=== PATIENT | female | born 1985 | race Two or more races ===

== ENCOUNTER → 2020-01-11 | Outpatient (CLI) | payer SELFPAY ==
--- NOTE | 2020-01-11 14:32 | RADIOLOGY REPORT (SQ) ---
EXAM DESCRIPTION: U/S [id number] TRNABD 1GES W/ODOP IMAGES COMPLETED DATE/TIME: 01/11/2020 2:24 pm REASON FOR STUDY: Z34.81 ENCOUNTER FOR SUPRVSN OF NORMAL , FIRST TRIMESTER Z34.81 ENCOUNTE R FOR SUPRVSN OF NORMAL , FIRST TRIM COMPARISON: None. TECHNIQUE: Transabdominal static and realtime grayscale images acquired of the pelvis. Additional se lected spectral and color Doppler images recorded. All images [facility] PAC[facility]. [facility]. CLINICAL DATES: Unknown. LIMITATIONS: None. FINDINGS: FETUS: Single Living intrauterine . ULTRASOUND EGA: 10 weeks 1 day. ULTRASOUND MIKE: 08/07/2020 EFW: Not applicable less than 20 weeks. CRL: 3.22 cm. FHR: 178 Beats per minute. SURVEY: Too early to assess. AMNIOTIC FLUID: Adequate amount. PLACENTA: Not yet developed due to early gestation. SUBCHORIONIC BLEED: Yes. SIZE OF BLEED: 2.2 x 1.2 x 1.6 cm. UTERUS: No masses. No anomalies. CERVICAL LENGTH: 2.5 cm. Closed. RIGHT ADNEXA: Normal ovary with normal vascular flow. No adnexal free fluid. No adnexal masses. LEFT ADNEXA: Normal ovary with normal vascular flow. No adnexal free fluid. No adnexal masses. FREE FLUID: None. OTHER: No other significant finding. IMPRESSION: LIVING INTRAUTERINE . EGA 10 WEEKS 1 DAY. Trimester of : First trimester - 0 to 13 weeks. TECHNICAL DOCUMENTATION: JOB ID: [id number] 2010 [employer]- All Rights Reserved Reading location - IP/workstation name: [email or web address]
== END ==
LOC: RAD 13:57
PROVIDERS: ATTEND Midwife
DX: Z34.81 Encounter for supervision of other normal pregnancy, first trimester (principal); Z3A.10 10 weeks gestation of pregnancy
CPT/HCPCS: 76801

== ENCOUNTER → 2020-03-31 | Outpatient (CLI) | payer SELFPAY ==
--- NOTE | 2020-03-31 16:28 | RADIOLOGY REPORT (SQ) ---
EXAM DESCRIPTION: U/S OB 14+ TRNABD 1GES W/O DOP IMAGES COMPLETED DATE/TIME: 03/31/2020 3:56 pm REASON FOR STUDY: ENCOUNTER FOR SUPERVISION OF OTHER NORMAL Z34.82 ENCOUNTER FOR SUPRVSN OF NORMAL , SECOND TRI COMPARISON: 01/11/2020 TECHNIQUE: Static and Dynamic grayscale imaging performed of gravid uterus using transabdominal appr oach. Additional selected color Doppler and spectral images recorded. All stored on PACS. LIMITATIONS: None. FINDINGS: CLINICAL DATES: MIKE 08/06/2020 EGA: 21 WEEKS 5 DAYS FETUSES SEEN:1 EGA: 20 weeks 3 days Calculated using BPD,FL,HC,AC documented on images. MIKE: 08/15/2020 LVP: 3.4 x 9.5 cm PLACENTA: Posterior PRESENTATION: Variable. ANATOMY: HEART RATE: 153 beats per minute. FOUR CHAMBER HEART: Visualized. THREE VESSEL CORD: Yes. CORD INSERTION: Visualized. KIDNEYS AND BLADDER: Visualized. Appear normal. STOMACH: Visualized. Appears normal. SPINE: Normal as visualized. BRAIN AND LATERAL VENTRICLES: Visualized. Appear normal. OTHER: No other significant finding. MATERNAL ADNEXA: Right ovary nonvisualized. CERVICAL LENGTH: 4.9 cm Closed. OTHER: No other significant finding. IMPRESSION: LIVING INTRAUTERINE . ESTIMATED GESTATIONAL AGE 20 weeks 3 days NO VISUALIZED ANOMALIES. Trimester of : Second trimester - 13 weeks 1 day to 27 weeks 6 days. TECHNICAL DOCUMENTATION: JOB ID: [id number] 2010 [employer]- All Rights Reserved Reading location - IP/workstation name: [email or web address]
== END ==
LOC: RAD 15:11
PROVIDERS: ATTEND Nurse Practitioner Family
DX: Z34.82 Encounter for supervision of other normal pregnancy, second trimester (principal); Z3A.20 20 weeks gestation of pregnancy
CPT/HCPCS: 76805

== ENCOUNTER → 2020-05-12 | Outpatient (CLI) | payer SELFPAY ==
[2020-05-12 13:56] LABS: PLATELET COUNT 209 10^3/uL (150-450)
[2020-05-12 14:10] LABS: ALBUMIN 3.9 g/dL (3.5-5.0); ALKALINE PHOSPHATASE 81 U/L (38-126); ASPARTATE AMINO TRANSFERASE 24 U/L (14-36); BILIRUBIN,DIRECT 0.3 mg/dL (0.0-0.4); BILIRUBIN,TOTAL 0.5 mg/dL (0.2-1.3); TOTAL PROTEIN 6.9 g/dL (6.3-8.2)
[2020-05-12 14:19] LABS: UR PRO/CREAT RATIO RESULT 0.2 mg/mg (0.0-0.2); URINE PROTEIN 19.6 mg/dL (<12)
== END ==
LOC: OD 12:36
PROVIDERS: ATTEND Nurse Practitioner Family
DX: Z34.83 Encounter for supervision of other normal pregnancy, third trimester (principal); R03.0 Elevated blood-pressure reading, without diagnosis of hypertension
CPT/HCPCS: 36415; 80076; 82565; 82570; 84156; 85049

== ENCOUNTER → 2020-06-23 | Outpatient (CLI) | payer SELFPAY ==
[2020-06-23 12:35] LABS: PLATELET COUNT 183 10^3/uL (150-450)
[2020-06-23 12:41] LABS: UR PRO/CREAT RATIO RESULT 2.2 mg/mg (0.0-0.2); URINE CREATININE 6.7 mg/dL (16-327); URINE PROTEIN 14.7 mg/dL (<12)
[2020-06-23 12:58] LABS: ALBUMIN 3.6 g/dL (3.5-5.0); ALKALINE PHOSPHATASE 116 U/L (38-126); ASPARTATE AMINO TRANSFERASE 21 U/L (14-36); BILIRUBIN,DIRECT 0.1 mg/dL (0.0-0.4); BILIRUBIN,TOTAL 0.4 mg/dL (0.2-1.3); TOTAL PROTEIN 6.2 g/dL (6.3-8.2)
== END ==
LOC: OD 11:27
PROVIDERS: ATTEND Nurse Practitioner Family
DX: Z34.83 Encounter for supervision of other normal pregnancy, third trimester (principal)
CPT/HCPCS: 36415; 80076; 82565; 82570; 84156; 85049

== ENCOUNTER 2020-06-30 09:52 | Outpatient (CLI) | payer SELFPAY ==
--- NOTE | 2020-06-30 11:25 | RADIOLOGY REPORT (SQ) ---
EXAM DESCRIPTION: U/S OB LIMITED IMAGES COMPLETED DATE/TIME: 06/30/2020 10:31 am REASON FOR STUDY: KELLY only ; [facility] pt COMPARISON: None. TECHNIQUE: Limited transvaginal grayscale ultrasound for evaluation of specific requested obstetrica l parameters. LIMITATIONS: None. FINDINGS: CERVICAL LENGTH: Not assessed KELLY: 8.4 cm. FHR: 168 beats per minute. PRESENTATION: Cephalic. PLACENTA: Posterior ANATOMY: Not assessed OTHER: Estimated gestational age 33 weeks 3 days. IMPRESSION: LIMITED OBSTETRICAL ULTRASOUND WITH MEASURED PARAMETERS DELINEATED ABOVE. Trimester of : Third trimester - 28 weeks to delivery. TECHNICAL DOCUMENTATION: JOB ID: [id number] 2010 [employer]- All Rights Reserved Reading location - IP/workstation name: [email or web address]
--- NOTE | 2020-06-30 11:34 | Non Stress Test Report ---
Non Stress Test Datetime Report Generated by CPN: 06/30/2020 11:33 DEMOGRAPHIC EGA NST: 34.6 INDICATION Indication for Study (NST) Other: IUP at 34.6 VITAL SIGNS Temperature - NST: 98.9 Pulse - NST: 113 RESP - NST: 18 NBPSYS NST: 119 NBPDIA NST: 72 URINE RESULTS Urine Protein, NST: Positive MONITORING Monitor Explained: Monitor Explained; Test Explained; Patient Verbalized Understanding Time on Monitor: 06/30/2020 10:36 Time off Monitor: 06/30/2020 10:57 NST Duration: 21 NST INTERVENTIONS NST Interventions: PO Hydration Physician Notified NST: J. Mabry, CNM BABY A: [id number] BABY A Movement : Present Contraction Frequency : 0 FHR Baseline : 150 Accelerations : 15X15 Decelerations : None Variability : Moderate 6-25bpm NST Review: Meets Criteria for Reactive NST NST Review and Verified By : Malia Vidal NST Results: Reactive NST REPORT Report Trigger: Send Report
== END 2020-06-30 11:03 | disposition home or self-care (01) ==
LOC: LC 09:52
PROVIDERS: ATTEND Obstetrics & Gynecology
DX: O13.3 Gestational [pregnancy-induced] hypertension without significant proteinuria, third trimester (principal); Z3A.34 34 weeks gestation of pregnancy
CPT/HCPCS: 59025; 76815

== ENCOUNTER 2020-07-04 09:22 | Outpatient (CLI) | payer SELFPAY ==
--- NOTE | 2020-07-04 10:06 | Non Stress Test Report ---
Non Stress Test Datetime Report Generated by CPN: 07/04/2020 10:06 DEMOGRAPHIC EGA NST: 35.3 INDICATION Indication for Study (NST) Other: AMA VITAL SIGNS Temperature - NST: 97.3 Pulse - NST: 122 RESP - NST: 18 NBPSYS NST: 127 NBPDIA NST: 81 MONITORING Monitor Explained: Monitor Explained; Test Explained; Patient Verbalized Understanding Time on Monitor: 07/04/2020 09:41 Time off Monitor: 07/04/2020 10:01 NST Duration: 20 NST INTERVENTIONS NST Interventions: PO Hydration; Reposition Patient Physician Notified NST: J. Mabry, CNM BABY A: [id number] BABY A Movement : Present Contraction Frequency : 0 FHR Baseline : 150 Accelerations : 15X15 Decelerations : None Variability : Moderate 6-25bpm NST Review: Meets Criteria for Reactive NST NST Review and Verified By : Ba Barboza RN NST Results: Reactive NST REPORT Report Trigger: Send Report
== END 2020-07-04 10:06 | disposition home or self-care (01) ==
LOC: LC 09:22
PROVIDERS: ATTEND Student in an Organized Health Care Education/Training Program
DX: Z34.83 Encounter for supervision of other normal pregnancy, third trimester (principal)
CPT/HCPCS: 59025

== ENCOUNTER 2020-07-07 11:14 | Outpatient (CLI) | payer SELFPAY ==
--- NOTE | 2020-07-07 11:55 | Non Stress Test Report ---
Non Stress Test Datetime Report Generated by CPN: 07/07/2020 11:55 DEMOGRAPHIC EGA NST: 35.6 INDICATION Indication for Study (NST) Other: Repeat NST/KELLY VITAL SIGNS Temperature - NST: 97.8 Pulse - NST: 87 RESP - NST: 18 NBPSYS NST: 111 NBPDIA NST: 68 MONITORING Monitor Explained: Monitor Explained; Test Explained Time on Monitor: 07/07/2020 11:24 Time off Monitor: 07/07/2020 11:44 NST Duration: 20 NST INTERVENTIONS NST Interventions: PO Hydration Physician Notified NST: N Fay BABY A: [id number] BABY A Movement : Present Contraction Frequency : 0 FHR Baseline : 145 Accelerations : 15X15 Decelerations : None Variability : Moderate 6-25bpm NST Review: Meets Criteria for Reactive NST NST Review and Verified By : SAutry NST Results: Reactive NST REPORT Report Trigger: Send Report
--- NOTE | 2020-07-07 12:18 | RADIOLOGY REPORT (SQ) ---
EXAM DESCRIPTION: U/S OB LIMITED IMAGES COMPLETED DATE/TIME: 07/07/2020 12:10 pm REASON FOR STUDY: AMA w/ Htn, scheduled KELLY check COMPARISON: None. TECHNIQUE: Limited transabdominal grayscale ultrasound for evaluation of specific requested obstetri zaid parameters. LIMITATIONS: None. FINDINGS: CERVICAL LENGTH: 3.9 cm Closed. KELLY: 6.2 cm. LVP--- 3.6 x 4.1 cm FHR: 158 beats per minute. PRESENTATION: Cephalic. PLACENTA: Not assessed ANATOMY: Not assessed OTHER: No other significant findings. IMPRESSION: 1. LIMITED OBSTETRICAL ULTRASOUND WITH MEASURED PARAMETERS DELINEATED ABOVE. Trimester of : Third trimester - 28 weeks to delivery. TECHNICAL DOCUMENTATION: JOB ID: [id number] 2010 [employer]- All Rights Reserved Reading location - IP/workstation name: [email or web address]
== END 2020-07-07 12:32 | disposition home or self-care (01) ==
LOC: LC 11:14
PROVIDERS: ATTEND Obstetrics & Gynecology
DX: O13.3 Gestational [pregnancy-induced] hypertension without significant proteinuria, third trimester (principal); Z3A.35 35 weeks gestation of pregnancy
CPT/HCPCS: 59025; 76815

== ENCOUNTER 2020-07-10 16:27 | Outpatient (CLI) | payer SELFPAY ==
--- NOTE | 2020-07-10 17:59 | Non Stress Test Report ---
Non Stress Test Datetime Report Generated by CPN: 07/10/2020 17:59 DEMOGRAPHIC Test Number: 3 EGA NST: 36.2 INDICATION Indication for Study (NST) Other: tachycardia VITAL SIGNS Temperature - NST: 97.9 Pulse - NST: 91 RESP - NST: 18 NBPSYS NST: 124 NBPDIA NST: 76 MONITORING Monitor Explained: Monitor Explained; Test Explained; Patient Verbalized Understanding Monitor Explained Other: [address] [place] Time on Monitor: 07/10/2020 16:48 Time off Monitor: 07/10/2020 17:16 NST Duration: 28 NST INTERVENTIONS NST Interventions: PO Hydration Physician Notified NST: Dr. Crum BABY A: [id number] BABY A Movement : Present Contraction Frequency : x1 FHR Baseline : 140 Accelerations : 15X15 Decelerations : None Variability : Moderate 6-25bpm NST Review: Meets Criteria for Reactive NST NST Review and Verified By : Js NST Results: Reactive NST REPORT Report Trigger: Send Report
== END 2020-07-10 17:29 | disposition home or self-care (01) ==
LOC: LC 16:27
PROVIDERS: ATTEND Obstetrics & Gynecology
DX: O36.8330 Maternal care for abnormalities of the fetal heart rate or rhythm, third trimester, not applicable or unspecified (principal); O09.523 Supervision of elderly multigravida, third trimester; Z3A.36 36 weeks gestation of pregnancy
CPT/HCPCS: 59025

== ENCOUNTER 2020-07-25 11:17 | Outpatient (CLI) | payer SELFPAY ==
--- NOTE | 2020-07-25 12:33 | Non Stress Test Report ---
Non Stress Test Datetime Report Generated by CPN: 07/25/2020 12:33 DEMOGRAPHIC EGA NST: 38.3 INDICATION Indication for Study (NST) Other: Weekly NST and [facility] VITAL SIGNS Temperature - NST: 98.6 Pulse - NST: 117 RESP - NST: 18 NBPSYS NST: 118 NBPDIA NST: 73 URINE RESULTS Urine Blood - NST: Positive MONITORING Monitor Explained: Monitor Explained; Test Explained; Patient Verbalized Understanding Time on Monitor: 07/25/2020 11:27 Time off Monitor: 07/25/2020 11:58 NST Duration: 31 NST INTERVENTIONS NST Interventions: None Physician Notified NST: K. Jim, CNM BABY A: [id number] BABY A Movement : Present Contraction Frequency : x1 FHR Baseline : 150 Accelerations : 15X15 Decelerations : None Variability : Moderate 6-25bpm NST Review: Meets Criteria for Reactive NST NST Review and Verified By : C. Erik RN NST Results: Reactive NST COMMENTS NST Comments: CNM on unit NST REPORT Report Trigger: Send Report
--- NOTE | 2020-07-25 12:35 | RADIOLOGY REPORT (SQ) ---
EXAM DESCRIPTION: U/S OB LIMITED IMAGES COMPLETED DATE/TIME: 07/25/2020 12:19 pm REASON FOR STUDY: KELLY COMPARISON: 07/07/2020 TECHNIQUE: Limited transabdominal grayscale ultrasound for evaluation of specific requested obstetri zaid parameters. LIMITATIONS: None. FINDINGS: CERVICAL LENGTH: 3.3 cm. Closed. KELLY: 11.3 cm. LVP---- 5.0 x 5.0 cm FHR: 163 beats per minute. PRESENTATION: Cephalic. PLACENTA: Posterior. ANATOMY: Not assessed OTHER: No other significant findings. IMPRESSION: 1. LIMITED OBSTETRICAL ULTRASOUND WITH MEASURED PARAMETERS DELINEATED ABOVE. Trimester of : Third trimester - 28 weeks to delivery. TECHNICAL DOCUMENTATION: JOB ID: [id number] 2010 [employer]- All Rights Reserved Reading location - IP/workstation name: [email or web address]
== END 2020-07-25 12:38 | disposition home or self-care (01) ==
LOC: LC 11:17
PROVIDERS: ATTEND Student in an Organized Health Care Education/Training Program
DX: O09.523 Supervision of elderly multigravida, third trimester (principal); O26.893 Other specified pregnancy related conditions, third trimester; R31.9 Hematuria, unspecified; Z3A.38 38 weeks gestation of pregnancy
CPT/HCPCS: 59025; 76815

== ENCOUNTER → 2020-07-30 | Outpatient (CLI) | payer SELFPAY ==
[2020-07-30 13:15] LABS: ALBUMIN 3.7 g/dL (3.5-5.0); ALKALINE PHOSPHATASE 150 U/L (38-126); ASPARTATE AMINO TRANSFERASE 24 U/L (14-36); BILIRUBIN,DIRECT 0.1 mg/dL (0.0-0.4); BILIRUBIN,TOTAL 0.5 mg/dL (0.2-1.3); TOTAL PROTEIN 6.6 g/dL (6.3-8.2)
== END ==
LOC: OD 11:33
PROVIDERS: ATTEND Midwife
DX: Z34.83 Encounter for supervision of other normal pregnancy, third trimester (principal)
CPT/HCPCS: 36415; 80076; 82565

== ENCOUNTER 2020-08-13 11:24 | Inpatient (IN) | payer OTHER ==
[2020-08-13] MEDS ORDERED: RINGERS SOLUTION,LACTATED 500 ML IV ONE (11:33)
[2020-08-13] MEDS: RINGERS SOLUTION,LACTATED 1,000 ML IV PRN ×2 (12:11→13:19)
[2020-08-13 12:19] LABS: AMORPHOUS SEDIMENT,URINE TRACE /HPF; APPEARANCE,URINE SLIGHTLY-CLOUDY; BILIRUBIN,URINE NEGATIVE (NEGATIVE); COLOR,URINE YELLOW; GLUCOSE, URINE >=500 mg/dL (NEGATIVE); KETONES,URINE NEGATIVE (NEGATIVE); LEUKOCYTE ESTERASE,URINE MODERATE (NEGATIVE); NITRITE,URINE NEGATIVE (NEGATIVE); PROTEIN,URINE NEGATIVE (NEGATIVE); URINE SPECIFIC GRAVITY 1.003; UROBILINOGEN,URINE NEGATIVE mg/dL (<2.0)
[2020-08-13 12:25] LABS: URINE AMPHETAMINES SCREEN NEGATIVE; URINE BARBITURATES SCREEN NEGATIVE; URINE BENZODIAZEPINES SCREEN NEGATIVE; URINE COCAINE SCREEN NEGATIVE; URINE MARIJUANA (THC) SCREEN NEGATIVE; URINE METHADONE SCREEN NEGATIVE; URINE PHENCYCLIDINE SCREEN NEGATIVE
[2020-08-13 12:49] LABS: ABSOLUTE LYMPHOCYTES (AUTO) 1.5 10^3/uL (0.5-4.7); ABSOLUTE MONOCYTES (AUTO) 0.8 10^3/uL (0.1-1.4); ABSOLUTE NEUT (AUTO) 12.9 10^3/uL (1.7-8.2); BASOPHILS % (AUTO) 0.2 % (0-2); EOSINOPHILS % (AUTO) 0.2 % (0-6); HEMATOCRIT 38.1 % (36.0-47.0); HEMOGLOBIN 12.8 g/dL (12.0-15.5); LYMPHOCYTES % (AUTO) 9.7 % (13-45); MEAN CORPUSCULAR HEMOGLOBIN 31.2 pg (27.0-33.4); MEAN CORPUSCULAR HGB CONC 33.5 g/dL (32.0-36.0); MEAN CORPUSCULAR VOLUME 93 fl (80-97); MONOCYTES % (AUTO) 5.5 % (3-13); PLATELET COUNT 165 10^3/uL (150-450); RED CELL DISTRIBUTION WIDTH 14.3 % (11.5-14.0); SEGMENTED NEUTROPHILS % (AUTO) 84.4 % (42-78); TOTAL CELLS COUNTED % (AUTO) 100 %; WHITE BLOOD COUNT 15.2 10^3/uL (4.0-10.5)
[2020-08-13 12:59] LABS: ALBUMIN 3.3 g/dL (3.5-5.0); ALKALINE PHOSPHATASE 158 U/L (38-126); ANION GAP 8 (5-19); ASPARTATE AMINO TRANSFERASE 23 U/L (14-36); BILIRUBIN,DIRECT 0.2 mg/dL (0.0-0.4); BILIRUBIN,TOTAL 0.5 mg/dL (0.2-1.3); BLOOD UREA NITROGEN 4 mg/dL (7-20); CALCIUM 8.9 mg/dL (8.4-10.2); CARBON DIOXIDE 21 mmol/L (22-30); CHLORIDE 108 mmol/L (98-107); GLUCOSE 91 mg/dL (75-110); POTASSIUM 4.1 mmol/L (3.6-5.0); TOTAL PROTEIN 6.2 g/dL (6.3-8.2); URIC ACID 3.4 mg/dL (2.5-7.0)
[2020-08-13 13:58] LABS: UR PRO/CREAT RATIO RESULT 1.1 mg/mg (0.0-0.2); URINE CREATININE 17.3 mg/dL (16-327); URINE PROTEIN 19.8 mg/dL (<12)
[2020-08-13] MEDS ORDERED: LIDOCAINE 1% INJ-PF (10 MG/ML) 30 ML SDV ONE (14:26)
[2020-08-13] MEDS ORDERED: OXYTOCIN/0.9 % SODIUM CHLORIDE 30 UNIT/500 ML RTUINJ ONE (14:26)
[2020-08-13] MEDS ORDERED: MISOPROSTOL 0.2 MG TABLET ONE (14:26)
[2020-08-13] MEDS ORDERED: OXYTOCIN 10 UNIT/ML VIAL ONE (14:26)
--- NOTE | 2020-08-13 15:19 | Admission Physical ---
Datetime Report Generated by CPN: 08/13/2020 15:19 CURRENT ADMISSION Chief Complaint: Uterine Contractions; Suspected Ruptured Membranes Chief Complaint Other: sent from [facility] 6c per Omero Fay [facility] Indication for Induction: Not Applicable; Post Dates Admit Impression : Active Labor Admit Plan: Initiate Labor Protocol Admit Plan- Other: 41.1 GBS neg had 1 x consult at [facility] today, she has been getting PNC at [facility] +afp for DS, declined MFM ALLERGIES Medication Allergies: No Medication Allergies: No Known Allergies (08/13/2020) Latex: No Latex Allergies OBSTETRICAL HISTORY EDC: 08/05/2020 00:00 : 3 Para: 2 Term: 0 : 0 SAB: 0 IAB: 0 Ectopic: 0 Cesareans: 0 VBACs: 0 Multiple Births: 0 SEE RECORDS Alcohol: No Marijuana : No Cocaine: No Other Illicit Drugs: No Cigarettes: Never Smoker. [id number] PHYSICAL EXAM General: Normal HEENT: Deferred Neurologic: Normal Thyroid: Deferred Heart: Normal Lungs: Normal Breast: Deferred Back: Deferred Abdomen: Normal Genitourinary Exam: Normal Extremities: Normal DTRs: Deferred Pelvic Type: Adequate Vital Signs: Reviewed FETUS A EGA: 41.1 Monitoring: External US Variability: Moderate 6-25bpm Accelerations: 15X15 Decelerations: None Presentation: Vertex Admit Comment: admitted to unit for labor anticipate declines epidural PLANS FOR LABOR AND DELIVERY Labor and Delivery: None Pain Management: Natural Feeding Preference: Both Benefit of Breast Feed Discussed: Yes Circumcision: No INFORMED CONSENT Assignment: Seth Vinson MD Signature: with User ID: Drew : with User ID: Drew
[2020-08-13] MEDS ORDERED: IBUPROFEN 800 MG TABLET ONE (17:33)
[2020-08-13] MEDS ORDERED: BENZOCAINE/MENTHOL AEROSOL SPRAY 56 ML ONE (17:34)
[2020-08-13] MEDS ORDERED: PSEUDOEPHEDRINE HCL 30 MG TABLET PO PRN (19:07)
[2020-08-13] MEDS ORDERED: ACETAMINOPHEN WITH CODEINE #3 TABLET PO PRN ×2 (19:07)
[2020-08-13] MEDS ORDERED: ACETAMINOPHEN 325 MG TABLET PO PRN (19:07)
[2020-08-13] MEDS ORDERED: FAMOTIDINE 20 MG TABLET PO PRN (19:07)
[2020-08-13] MEDS ORDERED: DIPHENHYDRAMINE HCL 25 MG CAPSULE PO PRN (19:07)
[2020-08-13] MEDS ORDERED: ZOLPIDEM TARTRATE 5 MG TABLET PO PRN (19:07)
[2020-08-13] MEDS ORDERED: OXYTOCIN/0.9 % SODIUM CHLORIDE 30 UNIT/500 ML RTUINJ IV PRN (19:07)
[2020-08-13] MEDS ORDERED: MEASLES,MUMPS&RUBELLA VACC/PF 0.5 ML VIAL SUBCUT PRN (19:07)
[2020-08-13] MEDS ORDERED: DIBUCAINE 1% OINTMENT 28 GM TP PRN (19:07)
[2020-08-13] MEDS ORDERED: MAGNESIUM HYDROXIDE SUSP 30 ML UDCUP PO PRN (19:07)
[2020-08-13] MEDS ORDERED: MAG HYDROX/AL HYDROX/SIMETH SUSP 30 ML UDCUP PO PRN (19:07)
[2020-08-13] MEDS ORDERED: GLYCERIN/WITCH HAZEL LEAF 1 EACH MED..WIPE TP PRN (19:07)
[2020-08-13] MEDS ORDERED: BENZOCAINE/MENTHOL AEROSOL SPRAY 56 ML TOP PRN (19:07)
[2020-08-13] MEDS ORDERED: VARICELLA VACC/PF (1350 UNIT/0.5 ML) 0.5 ML VIAL SUBCUT PRN (19:07)
[2020-08-13] MEDS ORDERED: ACETAMINOPHEN 650 MG SUPP.RECT PR PRN (19:07)
[2020-08-13] MEDS ORDERED: DIPH/PERTUSS(ACELL)/TETANUS VAC/PF 0.5 ML SYR (>=10YO) IM PRN (19:07)
[2020-08-13] MEDS: IBUPROFEN 800 MG TABLET PO SCH (21:27)
--- NOTE | 2020-08-13 22:33 | Birth Certificate Data ---
Cert Data Datetime Report Generated by CPN: 08/13/2020 22:33 CERTIFICATE DATA Delivery Provider: Miracle Jim CNM (06/30/2020 09:56:Holly Vidal RN) 47a. Care: Yes (06/30/2020 09:56:Sruthi Castellanos RN) 48a. Number of Prev Live Births: 2 (06/30/2020 09:56:Sruthi Castellanos RN) 48d. Date of Last Live : 04/30/2010 00:00 (06/30/2020 09:56:Sruthi Castellanos RN) 48e. Losses: 0 (06/30/2020 09:56:Sruthi Castellanos RN) RISK FACTORS IN THIS 49c. Previous Births: 0 (06/30/2020 09:56:November IDALIA Castellanos) 49f. Previous Cesareans: 0 (06/30/2020 09:56:November IDALIA Castellanos) Mother's Height 50b. Height Inches: 64 (08/13/2020 12:03:[facility] system process) Mother's Weight 51a. Pre- Weight (lbs): 166 (06/30/2020 09:56:November IDALIA Castellanos) 51b. Weight at Delivery (lbs): 180 (08/13/2020 18:05:[facility] system process) 52. Dt Last Normal Menses Began: 10/30/2019 00:00 (06/30/2020 09:56:November IDALIA Castellanos) Infections Present/Treated Results this Hospital Visit : Negative (06/30/2020 09:56:Sruthi Castellanos RN) Results this Hospital Visit: Negative (06/30/2020 09:56:Sruthi Castellanos RN) Results this Hospital Visit: Negative (06/30/2020 09:56:Sruthi Castellanos RN) 53e. Hepatitis C: Negative (06/30/2020 09:56:Sruthi Castellanos RN) 53h. Mother Tested for HBsAG: Yes (06/30/2020 09:56:Sruthi Castellanos RN) 53i. Date Tested: 01/17/2020 00:00 (06/30/2020 09:56:Sruthi Castellanos RN) 53j. Test Result: Negative (06/30/2020 09:56:Sruthi Castellanos RN) Cigarette Smoking Cigarette Smoking: Never Smoker. [id number] (06/30/2020 09:56:Holly Vidal RN) Onset of Labor 56a. PROM >12 Hrs: 12.78 (08/13/2020 12:48:QS system process) 56b. Precipitous Labor <3 Hrs: 12 (06/30/2020 09:56:QS system process) 56c. Prolonged Labor > 20 Hrs: 12 (06/30/2020 09:56:QS system process) 57a. Induction of Labor: N/A (Annotations: Data stored by N on behalf of user) (06/30/2020 09:56:Holly Vidal RN) 57c. Non-Vertex Presentation A: Vertex (06/30/2020 09:56:Holly Vidal RN) 57d. Steroids - Lung Mat: None (06/30/2020 09:56:Holly Vidal RN) 57d. Steroids - Lung Mat: Not Applicable (06/30/2020 09:56:Holly Vidal RN) 57f. Mat [place] or Temp >100.4: 99.9 (06/30/2020 09:56:Holly Vidal RN) 57g. Moderate/Heavy Meconium: Clear (08/13/2020 12:48:Holly Vidal RN) 57h. Intolerance of Labor: N/A (06/30/2020 09:56:Holly Vidal RN) 57i. Epidural/Spinal Anesthesia: None (06/30/2020 09:56:Holly Vidal RN) Method of Delivery 58a. Forceps - Unsuccessful A: N/A (06/30/2020 09:56:Holly Vidal RN) 58b. Vacuum - Unsuccessful A: N/A (06/30/2020 09:56:Holly Vidal RN) 58c. Presentation at 58c. Presentation at - A : Vertex (06/30/2020 09:56:Holly Vidal RN) 58c. Presentation at - A : N/A (06/30/2020 09:56:Holly Vidal RN) 58c. Presentation at - A : Cephalic (08/13/2020 12:57:Holly Vidal RN) Final Route and Method of Del 58d. Baby A Route/Delivery: Vaginal (08/13/2020 14:47:Holly Vidal RN) 58e. Trial of Labor Attempted: No (06/30/2020 09:56:Holly Vidal RN) 58e. Trial of Labor Attempted A: N/A (06/30/2020 09:56:Holly Vidal RN) Maternal Morbidity 59b. 3rd or 4th Degree Lacs: Vaginal (06/30/2020 09:56:Miracle Jim CNM) Birthweight Baby A: 3380 (06/30/2020 09:56:Holly Vidal RN) 60a. Pounds : 7 (06/30/2020 09:56:QS system process) 60b. Ounces: 7 (06/30/2020 09:56:QS system process) 61. GA at Delivery Baby A: 41.1 (06/30/2020 09:56:Holly Vidal RN) : Late Term- 41- 41.6 Weeks (06/30/2020 09:56:QS system process) 62a. 5 Minute Baby A: 9 (06/30/2020 09:56:QS system process)
--- NOTE | 2020-08-13 22:33 | Delivery Summary ---
Del Sum A-C Datetime Report Generated by CPN: 08/13/2020 22:32 DELIVERY PERSONNEL DELIVERY PERSONNEL: [id number] Delivery Doctor:: Miracle Jim CNM Nurse Facial Operator Certified:: Miracle Jim CNM Labor and Delivery Nurse:: Holly Vidal RNmanager wound Nurse:: OC [place] Se[employer] Harvester:: Dr. Rivka Guardado Nursery Nurse:: Jackie Roche RN Nursery Nurse:: Kay Ashton RN Hair Sample Matcher/COOK SHORT ORDER: Jane Owens, ST MATERNAL INFORMATION Delivery Anesthesia: None Medications After Delivery: Pitocin 30 Units in 500ml NS/D5W; Other-Please Comment Meds After Delivery Comment: Lidocaine Delivery QBL Comment: 400 Maternal Complications: Maternal Fever Provider Comments: SVDVM, ZHENG. Ant shoulder delivered, tight, then post shoulder followed by body and cord. Short cord noted. vigorous, to mothers abd. Cord cut before 2 min d/t maternal bleeding noted. Laceration just inside post vaginal wall near perineum bleeding, small 1st degree. Used 3.0 suture to acheive hemostasis. Placenta spont via flores, inact. Fundus firmed, pitocin bolus started. Mother and stable. LABOR SUMMARY EDC: 08/05/2020 00:00 No. Babies in Womb: 1 Attempted: No Labor Anesthesia: None LABOR INFORMATION Reason for Induction: Not Applicable Onset of Labor: 08/13/2020 02:00 Complete Dilatation: 08/13/2020 14:23 Oxytocin: N/A (Annotations: Data stored by N on behalf of user) Group B Beta Strep: negative Antibiotics # of Doses: 0 Steroids Given: None Reason Steroids Not Administered: Not Applicable MEMBRANES Membranes Rupture Method: Spontaneous Rupture of Membranes: 08/13/2020 02:00 Length of Rupture (hr): 12.78 Amniotic Fluid Color: Clear Amniotic Fluid Amount: Small Amniotic Fluid Odor: None STAGES OF LABOR Stage 1 hr: 12 Stage 1 min: 23 Stage 2 hr: 0 Stage 2 min: 24 Stage 3 hr: 0 Stage 3 min: 6 Total Time in Labor hr: 12 Total Time in Labor min: 53 VAGINAL DELIVERY Episiotomy: None Laceration #1: Vaginal Laceration Extension #1: First Degree Laceration Repair: Yes Laceration Repair Note: 3.0 chromic suture used for hemostasis Sponge Count Correct: N/A CSECTION DELIVERY Primary Indication: N/A BABY A INFORMATION Infant Delivery Date/Time: 08/13/2020 14:47 Method of Delivery: Vaginal Born in Route : No : N/A Forceps: N/A Vacuum Extraction: N/A Shoulder Dystocia : No PRESENTATION/POSITION BABY A Presentation: Cephalic Cephalic Presentation: Vertex Vertex Position: Right Occipital Anterior Breech Presentation: N/A PLACENTA INFORMATION BABY A Placenta Delivery Time : 08/13/2020 14:53 Placenta Method of Delivery: Spontaneous Placenta Status: Delivered SCORES BABY A Heart Rate 1 min: >100 bpm Resp Effort 1 min: Good Cry Reflex Irritability 1 min: Cough or Sneeze or Pulls Away Muscle Tone 1 min: Active Motion Color 1 min: Blue/Pale Resuscitation Effort 1 min: Tactile Stimulation SCORE 1 MIN: 8 Heart Rate 5 min: >100 bpm Resp Effort 5 min: Good Cry Reflex Irritability 5 min: Cough or Sneeze or Pulls Away Muscle Tone 5 min: Active Motion Color 5 min: Body [place], Extremities Blue Resuscitation Effort 5 min: N/A SCORE 5 MIN: 9 INFORMATION BABY A Gestational Age at Delivery: 41.1 Gestational Status: Late Term- 41- 41.6 Weeks Infant Outcome : Liveborn Condition : Stable Infant Sex: Male IDENTIFICATION BABY A Verification Date/Time: 08/13/2020 16:40 ID Band Number: [id number] Mother's Name Verified: Yes RN Verifying Infant: M Young Additional Verifying Personnel: K Poli WEIGHT/LENGTH BABY A Birthweight (gm): 3380 Infant Weight (lb): 7 Infant Weight (oz): 7 Length (in): 20.00 Length (cm): 50.80 CORD INFORMATION BABY A No. Cord Vessels: 3 Infant Suction: None ASSESSMENT BABY A Skin to Skin: Yes SIGNATURES Assignment: Seth Vinson MD Signature: with User ID: [email or web address] : with User ID: Drew : I was personally available for consultation and serving as supervising physician for the MLP.
[2020-08-14] MEDS: IBUPROFEN 800 MG TABLET PO SCH ×3 (05:32→21:30)
[2020-08-14 07:20] LABS: HEMATOCRIT 35.4 % (36.0-47.0); HEMOGLOBIN 12.1 g/dL (12.0-15.5); MEAN CORPUSCULAR HEMOGLOBIN 31.6 pg (27.0-33.4); MEAN CORPUSCULAR HGB CONC 34.1 g/dL (32.0-36.0); MEAN CORPUSCULAR VOLUME 93 fl (80-97); PLATELET COUNT 167 10^3/uL (150-450); RED BLOOD COUNT 3.82 10^6/uL (3.72-5.28); RED CELL DISTRIBUTION WIDTH 14.5 % (11.5-14.0); WHITE BLOOD COUNT 15.8 10^3/uL (4.0-10.5)
[2020-08-14] MEDS: FERROUS SULFATE 325 MG TABLET PO SCH ×2 (09:43→18:44)
[2020-08-14] MEDS: DOCUSATE SODIUM 100 MG CAPSULE PO SCH ×2 (09:43→18:44)
[2020-08-14] MEDS: PRENATAL VITAMIN W DHA CAPSULE PO SCH (09:43)
[2020-08-14] MEDS: SENNOSIDES/DOCUSATE 8.6-50 MG 1 EACH TABLET PO SCH (09:43)
--- NOTE | 2020-08-14 11:02 | PDOC PROGRESS REPORT ---
Subjective-OB Progress Note for:: 08/14/20 Subjective: Doing well, no c/o, hsb at BS, breast and bottle feeding Physical Exam (OB) Vital Signs: Temp Pulse Resp BP Pulse Ox 97.7 F 80 16 121/78 100 08/14/20 07:52 08/14/20 07:52 08/14/20 07:52 08/14/20 07:52 08/14/20 07:52 Intake & Output 08/13/20 08/14/20 08/15/20 06:59 06:59 06:59 Intake Total 843 450 Balance 843 450 Weight 82.2 kg - PIH/Pre-Eclampsia DTR's: 1 + Clonus: Negative Headache: Absent Epigastric Pain: No Visual Changes: No - Maternal Morbidity 59. Maternal Morbidity (serious complications experinced by the mother associated with labor and delivery: None of the above - Lochia Lochia Amount: Scant < 10 ml Lochia Color: Rubra/Red - Abdomen Description: Soft Hernia Present: No Fundal Description: Firm, Midline Fundal Height: u/u - u/2 Objective-Diagnostic Laboratory: 08/14/20 06:35 08/13/20 12:19 08/13/20 08/13/20 08/13/20 11:45 12: 12:19 WBC 15.2 H RBC 4.10 Hgb 12.8 Hct 38.1 MCV 93 MCH 31.2 MCHC 33.5 RDW 14.3 H Plt Count 165 Seg Neutrophils % 84.4 H Sodium Potassium Chloride Carbon Dioxide Anion Gap BUN Creatinine Est GFR ( Amer) Glucose Uric Acid Calcium Total Bilirubin AST Alkaline Phosphatase Total Protein Albumin Urine Color YELLOW Urine Appearance SLIGHTLY-CLOUDY Urine pH 7.0 Ur Specific [place] 1.003 Urine Protein NEGATIVE Urine Glucose (UA) >=500 H Urine Ketones NEGATIVE Urine Blood LARGE H Urine Nitrite NEGATIVE Ur Leukocyte Esterase MODERATE H Urine WBC (Auto) 37 Urine RBC (Auto) 13 Blood Type O POSITIVE Antibody Screen NEGATIVE 08/13/20 08/14/20 12:19 06:35 WBC 15.8 H RBC 3.82 Hgb 12.1 Hct 35.4 L MCV 93 MCH 31.6 MCHC 34.1 RDW 14.5 H Plt Count 167 Seg Neutrophils % Sodium 136.8 L Potassium 4.1 Chloride 108 H Carbon Dioxide 21 L Anion Gap 8 BUN 4 L Creatinine 0.34 L Est GFR ( Amer) > 60 Glucose 91 Uric Acid 3.4 Calcium 8.9 Total Bilirubin 0.5 AST 23 Alkaline Phosphatase 158 H Total Protein 6.2 L Albumin 3.3 L Urine Color Urine Appearance Urine pH Ur Specific [place] Urine Protein Urine Glucose (UA) Urine Ketones Urine Blood Urine Nitrite Ur Leukocyte Esterase Urine WBC (Auto) Urine RBC (Auto) Blood Type Antibody Screen Assessment and Plan(PN) - Assessment and Plan (1) AMA (advanced maternal age) multigravida 35+ Qualifiers: Trimester: first trimester Qualified Code(s): O09.521 - Supervision of elderly multigravida, first trimester Is this a current diagnosis for this admission?: Yes (2) Obstetrical laceration, first degree Is this a current diagnosis for this admission?: Yes (3) Vaginal delivery Is this a current diagnosis for this admission?: Yes (4) SROM (spontaneous rupture of membranes) Is this a current diagnosis for this admission?: Yes - Time Spent with Patient Time with patient: Less than 15 minutes Medications reviewed and adjusted accordingly: Yes - Disposition Anticipated Discharge Disposition: Home, Self Care Anticipated Discharge Timeframe: within 24 hours
[2020-08-15] MEDS: IBUPROFEN 800 MG TABLET PO SCH ×2 (06:49→14:01)
[2020-08-15 07:51] VITALS: BP 95/63
--- NOTE | 2020-08-15 09:19 | PDOC PROGRESS REPORT ---
Subjective-OB Progress Note for:: 08/15/20 Subjective: Pt ready to go home, hsb and baby at BS, no c/o, nurse will discuss PP home care and instructions with them, ,scant bleeding Physical Exam (OB) Vital Signs: Temp Pulse Resp BP Pulse Ox 98.2 F 79 17 95/63 L 97 08/15/20 07:48 08/15/20 07:48 08/15/20 07:48 08/15/20 07:48 08/15/20 07:48 Intake & Output 08/14/20 08/15/20 08/16/20 06:59 06:59 06:59 Intake Total 843 800 Balance 843 800 Weight 82.2 kg - PIH/Pre-Eclampsia DTR's: 2 + Clonus: Negative Headache: Absent Epigastric Pain: No Visual Changes: No - Maternal Morbidity 59. Maternal Morbidity (serious complications experinced by the mother associated with labor and delivery: None of the above - Lochia Lochia Amount: Scant < 10 ml Lochia Color: Rubra/Red - Abdomen Description: Soft, Round Hernia Present: No Fundal Description: Firm, Midline Fundal Height: u/u - u/2 Objective-Diagnostic Laboratory: 08/14/20 06:35 08/13/20 12:19 Assessment and Plan(PN) - Assessment and Plan (1) AMA (advanced maternal age) multigravida 35+ Qualifiers: Trimester: first trimester Qualified Code(s): O09.521 - Supervision of elderly multigravida, first trimester Is this a current diagnosis for this admission?: Yes (2) Obstetrical laceration, first degree Is this a current diagnosis for this admission?: Yes (3) Vaginal delivery Is this a current diagnosis for this admission?: Yes (4) SROM (spontaneous rupture of membranes) Is this a current diagnosis for this admission?: Yes - Time Spent with Patient Time with patient: Less than 15 minutes Medications reviewed and adjusted accordingly: Yes - Disposition Anticipated Discharge Disposition: Home, Self Care Anticipated Discharge Timeframe: within 24 hours
--- NOTE | 2020-08-15 09:24 | PDOC DISCHARGE SUMMARY ---
Impression - Admit/DC Date/PCP Admission Date/Primary Care Provider: 08/13/20 11:24 MATTHEW TAMAYO MD Discharge Date: 08/15/20 - Discharge Diagnosis (1) AMA (advanced maternal age) multigravida 35+ Is this a current diagnosis for this admission?: Yes (2) Obstetrical laceration, first degree Is this a current diagnosis for this admission?: Yes (3) Vaginal delivery Is this a current diagnosis for this admission?: Yes (4) SROM (spontaneous rupture of membranes) Is this a current diagnosis for this admission?: Yes - Additional Information Resuscitation Status: Full Code Discharge Diet: As Tolerated, Regular Discharge Activity: Activity As Tolerated Referrals: MATTHEW TAMAYO MD [Primary Care Provider] - Home Medications: Prenat 115/Iron Fum/Folic/Dss [ 19 Tablet] 1 each PO DAILY 06/30/20 HPI Gestational Age: 41.1 Reason(s) for Admission: Onset of Labor, Spontaneous , Advanced Maternal Age Procedures: NST, Ultrasound Intrapartum Procedure(s): Spontaneous Vaginal Delivery Complication(s): Laceration-Vaginal Laceration-Degree: 1st Hospital Course Hospital Course: routine 57. Maternal Morbidity (serious complications experinced by the mother associated with labor and delivery: None of the above Results Laboratory Results: WBC 15.8 10^3/uL (4.0-10.5) H 08/14/20 06:35 RBC 3.82 10^6/uL (3.72-5.28) 08/14/20 06:35 Hgb 12.1 g/dL (12.0-15.5) 08/14/20 06:35 Hct 35.4 % (36.0-47.0) L 08/14/20 06:35 MCV 93 fl (80-97) 08/14/20 06:35 MCH 31.6 pg (27.0-33.4) 08/14/20 06:35 MCHC 34.1 g/dL (32.0-36.0) 08/14/20 06:35 RDW 14.5 % (11.5-14.0) H 08/14/20 06:35 Plt Count 167 10^3/uL (150-450) 08/14/20 06:35 Lymph % (Auto) 9.7 % (13-45) L 08/13/20 12:19 [place] % (Auto) 5.5 % (3-13) 08/13/20 12:19 Eos % (Auto) 0.2 % (0-6) 08/13/20 12:19 Baso % (Auto) 0.2 % (0-2) 08/13/20 12:19 Absolute Neuts (auto) 12.9 10^3/uL (1.7-8.2) H 08/13/20 12:19 Absolute Lymphs (auto) 1.5 10^3/uL (0.5-4.7) 08/13/20 12:19 Absolute Monos (auto) 0.8 10^3/uL (0.1-1.4) 08/13/20 12:19 Absolute Eos (auto) 0.0 10^3/uL (0.0-0.6) 08/13/20 12:19 Absolute Basos (auto) 0.0 10^3/uL (0.0-0.2) 08/13/20 12:19 Seg Neutrophils % 84.4 % (42-78) H 08/13/20 12:19 Sodium 136.8 mmol/L (137-145) L 08/13/20 12:19 Potassium 4.1 mmol/L (3.6-5.0) 08/13/20 12:19 Chloride 108 mmol/L (98-107) H 08/13/20 12:19 Carbon Dioxide 21 mmol/L (22-30) L 08/13/20 12:19 Anion Gap 8 (5-19) 08/13/20 12:19 BUN 4 mg/dL (7-20) L 08/13/20 12:19 Creatinine 0.34 mg/dL (0.52-1.25) L 08/13/20 12:19 Est GFR ( Amer) > 60 (>60) 08/13/20 12:19 Est GFR (MDRD) Non-Af > 60 (>60) 08/13/20 12:19 Glucose 91 mg/dL (75-110) 08/13/20 12:19 Uric Acid 3.4 mg/dL (2.5-7.0) 08/13/20 12:19 Calcium 8.9 mg/dL (8.4-10.2) 08/13/20 12:19 Total Bilirubin 0.5 mg/dL (0.2-1.3) 08/13/20 12:19 Direct Bilirubin 0.2 mg/dL (0.0-0.4) 08/13/20 12:19 Neonat Total Bilirubin Not Reportable 08/13/20 12:19 Neonat Direct Bilirubin Not Reportable 08/13/20 12:19 Neonat Indirect Bili Not Reportable 08/13/20 12:19 AST 23 U/L (14-36) 08/13/20 12:19 ALT 16 U/L (<35) 08/13/20 12:19 Alkaline Phosphatase 158 U/L (38-126) H 08/13/20 12:19 Lactate Dehydrogenase 194 U/L (120-246) 08/13/20 12:19 Total Protein 6.2 g/dL (6.3-8.2) L 08/13/20 12:19 Albumin 3.3 g/dL (3.5-5.0) L 08/13/20 12:19 Urine Color YELLOW 08/13/20 11:45 Urine Appearance SLIGHTLY-CLOUDY 08/13/20 11:45 Urine pH 7.0 (5.0-9.0) 08/13/20 11:45 Ur Specific [place] 1.003 08/13/20 11:45 Urine Protein NEGATIVE mg/dL (NEGATIVE) 08/13/20 11:45 Urine Glucose (UA) >=500 mg/dL (NEGATIVE) H 08/13/20 11:45 Urine Ketones NEGATIVE mg/dL (NEGATIVE) 08/13/20 11:45 Urine Blood LARGE (NEGATIVE) H 08/13/20 11:45 Urine Nitrite NEGATIVE (NEGATIVE) 08/13/20 11:45 Urine Bilirubin NEGATIVE (NEGATIVE) 08/13/20 11:45 Urine Urobilinogen NEGATIVE mg/dL (<2.0) 08/13/20 11:45 Ur Leukocyte Esterase MODERATE (NEGATIVE) H 08/13/20 11:45 Urine WBC (Auto) 37 /HPF 08/13/20 11:45 Urine RBC (Auto) 13 /HPF 08/13/20 11:45 Urine Bacteria (Auto) TRACE /HPF 08/13/20 11:45 Squamous Epi Cells Auto 13 /HPF 08/13/20 11:45 Amorphous Sediment Auto TRACE /HPF 08/13/20 11:45 Urine Mucus (Auto) RARE /LPF 08/13/20 11:45 Urine Creatinine 17.3 mg/dL (16-327) 08/13/20 11:45 Protein/Creatinin Ratio 1.1 mg/mg (0.0-0.2) H 08/13/20 11:45 Urine Total Protein 19.8 mg/dL (<12) H 08/13/20 11:45 Urine Ascorbic Acid NEGATIVE (NEGATIVE) 08/13/20 11:45 Urine Opiates Screen NEGATIVE 08/13/20 11:45 Urine Methadone Screen NEGATIVE 08/13/20 11:45 Ur Barbiturates Screen NEGATIVE 08/13/20 11:45 Ur Phencyclidine Scrn NEGATIVE 08/13/20 11:45 Ur Amphetamines Screen NEGATIVE 08/13/20 11:45 U Benzodiazepines Scrn NEGATIVE 08/13/20 11:45 Urine Cocaine Screen NEGATIVE 08/13/20 11:45 U Marijuana (THC) Screen NEGATIVE 08/13/20 11:45 RPR NONREACTIVE (NONREACTIVE) 08/13/20 12:19 Influenza A (RT-PCR) NEGATIVE (NEGATIVE) 08/13/20 15:25 Influenza B (RT-PCR) NEGATIVE (NEGATIVE) 08/13/20 15:25 RSV (RT-PCR) NEGATIVE (NEGATIVE) 08/13/20 15:25 SARS-CoV-2 Rap RNA(RT-PCR) NEGATIVE (NEGATIVE) 08/13/20 15:25 Blood Type O POSITIVE 08/13/20 12:19 Antibody Screen NEGATIVE 08/13/20 12:19 Plan Health Concerns: routine Plan of Treatment: discharge home, instructions in nam[place]ian Goals: no complications Time Spent: Less than 30 Minutes
[2020-08-15] MEDS: DOCUSATE SODIUM 100 MG CAPSULE PO SCH (10:59)
[2020-08-15] MEDS: SENNOSIDES/DOCUSATE 8.6-50 MG 1 EACH TABLET PO SCH (10:59)
[2020-08-15] MEDS: FERROUS SULFATE 325 MG TABLET PO SCH (10:59)
[2020-08-15] MEDS: PRENATAL VITAMIN W DHA CAPSULE PO SCH (10:59)
== END 2020-08-15 17:19 | disposition home or self-care (01) | DRG 807 ==
LOC: LR 11:24 → 2S 18:05
PROVIDERS: ADMIT Obstetrics & Gynecology Gynecology; ATTEND Obstetrics & Gynecology Gynecology
PROC: 10E0XZZ Delivery of Products of Conception, External Approach (ICD-10-PCS; principal; 2020-08-13)
PROC: 0HQ9XZZ Repair Perineum Skin, External Approach (ICD-10-PCS; 2020-08-13)
DX: O48.0 Post-term pregnancy (principal); Z37.0 Single live birth; O70.0 First degree perineal laceration during delivery; O69.2XX0 Labor and delivery complicated by other cord entanglement, with compression, not applicable or unspecified; O69.3XX0 Labor and delivery complicated by short cord, not applicable or unspecified; Z20.828 Contact with and (suspected) exposure to other viral communicable diseases; Z3A.41 41 weeks gestation of pregnancy
CPT/HCPCS: 36415; 80053; 80307; 81001; 82570; 83615; 84156; 84550; 85025; 85027; 86592; 86850; 86900; 86901; 88307; 0241U; C9803; J2590; J3490